=== PATIENT | male | born 1990 | race Caucasian/White ===

== ENCOUNTER 2017-01-19 19:20 | Emergency (ER) | payer BC ==
--- NOTE | 2017-01-19 20:08 | EDM.PDOC ---
ED HPI GENERAL MEDICAL PROBLEM - General Chief Complaint: Upper Extremity Injury/Pain Stated Complaint: DISLOCATED RIGHT FINGER Time Seen by Provider: 01/19/17 19:27 Source of Information: Reports: Patient, RN Notes Reviewed History Limitations: Reports: No Limitations - History of Present Illness INITIAL COMMENTS - FREE TEXT/NARRATIVE: The patient states that he may have dislocated the DIP joint of his right fourth finger while drying off after showering. He believes that his finger got snagged and his towel. He felt a popping sensation, grabbed his hand, and states that he felt it pop back in. He is otherwise uninjured. He reports pain to the dorsal aspect of the DIP if he presses on the volar aspect, however, otherwise, there is no pain with ROM or tenderness. No prior injury to that finger. The patient does not have a PCP. - Related Data Allergies Allergy/AdvReac Type Severity Reaction Status Date / Time No Known Allergies Allergy Verified 01/19/17 19:28 Home Meds: Home Meds . [No Known Home Meds] 01/19/17 [History] Past Medical History - Past Surgical History HEENT Surgical History: Reports: Oral Surgery ([place] teeth extraction) Musculoskeletal Surgical History: Reports: Other (See Below) (Right 5th finger tendon repair from left great toe. Right wrist tendon repair.) Social & Family History - Tobacco Use Smoking Status *Q: Never Smoker Second Hand Smoke Exposure: No - Caffeine Use Caffeine Use: Reports: Tea - Alcohol Use Alcohol Use History: No - Recreational Drug Use Recreational Drug Use: No - Living Situation & Occupation Living situation: Reports: Single, Other (with friends) Occupation: Employed ([employer]) Review of Systems - Review of Systems Review Of Systems: See Below Constitutional: Reports: No Symptoms Eyes: Reports: No Symptoms Ears: Reports: No Symptoms Nose: Reports: No Symptoms Mouth/Throat: Reports: No Symptoms Respiratory: Reports: No Symptoms Cardiovascular: Reports: No Symptoms GI/Abdominal: Reports: No Symptoms Genitourinary: Reports: No Symptoms Musculoskeletal: Reports: No Symptoms Skin: Reports: No Symptoms Neurological: Reports: No Symptoms Psychiatric: Reports: No Symptoms ED EXAM, GENERAL - Physical Exam Exam: See Below Exam Limited By: No Limitations General Appearance: Alert, WD/WN, No Apparent Distress Extremities: Other (No visible abnormality to the right fourth finger, such as swelling, erythema, ecchymosis, or abrasion. Clinically, the DIP is not dislocated, and there is no tenderness to palpation of the DIP joint. Normal AROM. Neurovascular status of the finger is intact.) Course - Vital Signs Last Recorded V/S: Last Vital Signs Temp 36.3 C 01/19/17 19:25 Pulse 66 01/19/17 19:25 Resp 18 01/19/17 19:25 BP 132/75 01/19/17 19:25 Pulse Ox 97 01/19/17 19:25 - Orders/Labs/Meds Orders: Active Orders 24 hr Category Date Time Status Fingers Fourth Digit Rt F8 [CR] Stat Exams 01/19/17 19:38 Taken - Re-Assessments/Exams Free Text/Narrative Re-Assessment/Exam: 01/19/17 20:02 4-view radiographs of the right fourth finger appear to be normal. No fracture or dislocation identified. Formal read per the Radiologist pending. 01/19/17 20:04 X-ray results discussed with the patient. It is possible the patient dislocated or partially dislocated his right fourth DIP joint, however, there is no question but that it is back in place at this time, and I do not see any evidence of a fracture having occurred. I'm recommending he take ibuprofen as needed for discomfort, and use the finger as tolerated. Departure - Departure Time of Disposition: 20:04 Disposition: Home, Self-Care 01 Condition: Good Clinical Impression: Injury of right ring finger - Discharge Information Referrals: PCP,None [Primary Care Provider] - Forms: ED Department Discharge Additional Instructions: You were seen in the emergency room after possibly dislocating the distal joint of your right ring finger. Workup in the ER included x-rays of your finger, which were normal. No broken bones or dislocations. It is possible that you dislocated or partially dislocated joint, but there is no question that it is back in proper position. We recommend you take [id number] ibuprofen as needed for discomfort. You may use your finger as tolerated. If any other problems, please do not hesitate to return to the ER. - My Orders Last 24 Hours: My Active Orders 01/19/17 19:38 Fingers Fourth Digit Rt F8 [CR] Stat - Assessment/Plan Last 24 Hours: My Active Orders 01/19/17 19:38 Fingers Fourth Digit Rt F8 [CR] Stat
--- NOTE | 2017-01-21 17:12 | CR ---
Right fourth finger: Four views centered to the right fourth finger were obtained. Comparison: No previous study. Soft tissue swelling is identified. No fracture, dislocation or other bony abnormality is seen. Impression: 1. Soft tissue swelling. No acute bony abnormality is identified on right fourth finger study. Diagnostic code #2
== END 2017-01-19 20:15 | disposition home or self-care (01) ==
LOC: JD.ED 19:20
DX: S69.91XA Unspecified injury of right wrist, hand and finger(s), initial encounter (principal); X58.XXXA Exposure to other specified factors, initial encounter
CPT/HCPCS: 73140-26-F8; 73140-F8; 99283; 99284